=== PATIENT | male | born 1945 | race Caucasian/White ===

== ENCOUNTER 2016-11-22 13:49 | Inpatient (IN) ==
[2016-11-22] MEDS ORDERED: 0.9 % Sodium Chloride 1,000 ML IVC ONE (13:56)
[2016-11-22] MEDS ORDERED: Norepinephrine 4 MG in D5% in Water 250 ML IV SCH ×2 (14:00→15:17)
[2016-11-22 14:02] LABS: Nucleated Red Blood Cells 0.3 /100 WBC (0); Segmented Neutrophils % 54.9 %
[2016-11-22 14:04] LABS: Basophils # 0.1 K/mcL (0.0-0.2); Basophils % 0.8 %; Eosinophils # 0.1 K/mcL (0.0-0.6); Eosinophils % 0.5 %; Hematocrit 54.5 % (37.5-50.1); Hemoglobin 14.6 g/dL (12.9-16.9); Immature Granulocytes % 4.3 % (0-4); Lymphocytes % 23.4 %; Mean Corpuscular HGB Conc 26.8 g/dL (31.6-35.5); Mean Corpuscular Hemoglobin 26.1 pg (28.0-33.3); Mean Corpuscular Volume 97.5 fL (83.0-100.0); Mean Platelet Volume 10.5 fL (9.4-12.4); Monocytes # 2.3 K/mcL (0.0-1.3); Monocytes % 16.1 %; Platelet Count 225 K/mcL (140-400); Red Blood Count 5.59 M/mcL (4.19-5.50); Red Cell Distribution Width 15.1 % (11.5-14.5)
[2016-11-22 14:05] LABS: Lymphocytes # 3.4 K/mcL (0.6-4.6); Neutrophils # 7.9 K/mcL (1.6-8.9)
[2016-11-22 14:11] LABS: INR 1.2; Prothrombin Time 12.7 Seconds (9.4-12.1)
[2016-11-22 14:13] LABS: Activated Partial Thrombo Time 28.2 Seconds (26.0-36.0)
[2016-11-22 14:18] LABS: BUN/Creatinine Ratio 25 (6-26); Blood Urea Nitrogen 25 mg/dL (8-26); Calcium 9.7 mg/dL (8.6-10.8); Carbon Dioxide 36 mEq/L (19-29); Chloride 101 mEq/L (98-109); Glucose 155 mg/dL (70-99); Magnesium 1.9 mg/dL (1.6-2.6); Osmolality,Calculated 318 (280-300); Sodium 150 mEq/L (136-145); eGFR For African Americans > 60 (> 60); eGFR For Non-African Americans > 60 (> 60)
[2016-11-22 14:28] LABS: Blood Gas FiO2 100 %
[2016-11-22 14:29] LABS: ABG Base Excess 6.4 mEq/L (-2.0 to 3.0); ABG HCO3 30 mEQ/L (21-27); ABG Oxygen Saturation 100 % (95-98); ABG PH 7.23 pH Units (7.32-7.45); ABG PO2 372 mmHg (85-104); ABG TCO2 40.9 mEq/L (20-26)
[2016-11-22 14:31] LABS: ABG PCO2 91 mmHg (35-45)
[2016-11-22 14:36] LABS: Platelet Estimate Normal (Normal)
[2016-11-22 14:37] LABS: Hypochromasia Present (Not Present); Large Platelets Present (Not Present); Polychromasia 1+ (Not Present)
[2016-11-22] MEDS ORDERED: 0.9 % Sodium Chloride 1,000 ML IV ONE (14:48)
[2016-11-22] MEDS ORDERED: *HR* Amiodarone Premix 150 MG/100 ML BAG IVPB ONE (14:48)
[2016-11-22] MEDS ORDERED: *HR* EPINEPHrine 1 MG/10 ML SYRINGE IVP ONE (14:48)
--- NOTE | 2016-11-22 14:49 | Pulmonology History & Physical ---
Date of Encounter: 11/22/16 Time of Encounter: 14:47 Assessment and Plan (1) Cardiac arrest Current visit: Yes Status: Acute Unclear etiology. Given chief complaint of chest pain prior to the decompensation there is concern for cardiac etiology. We will check an echocardiogram and trend his cardiac enzymes. He is certainly also a risk for a pulmonary cause of cardiac arrest with his underlying COPD and obesity hypoventilation syndrome coupled with the use of respiratory depressants ( opioids). Lactate is pending, but there is no anion gap on the blood chemistry. He currently has a stable blood pressure off vasopressors, however we will place a central line have norepinephrine available if needed. (2) Acute on chronic respiratory failure with hypoxia and hypercapnia Current visit: No Status: Acute Continue full vent support in the setting of cardiac arrest and initiation of hypothermia protocol. He is certainly at significant risk for requiring a tracheostomy tube depending on clinical course and goals of care discussion with family. (3) Encephalopathy Current visit: Yes Status: Acute Concern for anoxic brain injury in light of his prolonged CPR and clinical exam (myoclonic jerking). He will need head imaging when stable. We have initiated hypothermia protocol. I will check an neuron-specific enolase. (4) Obesity hypoventilation syndrome Current visit: Yes Status: Acute His BMI is 40, and his baseline PaCO2 is calculated at 62 mmHg. Currently treated with endotracheal tube and mechanical ventilator. (5) COPD (chronic obstructive pulmonary disease) Current visit: No Status: Acute Emphysematous changes noted on previous chest imaging. He also has a large bulla on the left. We will continue scheduled bronchodilators. Qualifiers: COPD type: emphysema Emphysema type: unspecified Qualified Code(s): J43.9 - Emphysema, unspecified (6) Abnormal chest x-ray Current visit: Yes Status: Acute I reviewed the chest x-ray performed today, which revealed findings concerning for a right lower lobe lung mass. Review of previous imaging revealed a right lower lobe nodule. We will need to defer any further workup such as CT scan of the chest until we know the status of his neurologic recovery. History of Present Illness Chief complaint: Cardiac arrest HPI: Mr. Licona is a 71 year old male with a medical history significant for COPD, obesity hypoventilation syndrome, and CLL who presents from home with cardiac arrest. Of note, the patient is currently intubated and encephalopathic. Therefore he is unable to provide history or review of systems. Information was obtained from the medical record and discussion with family and hospital staff. Reportedly, the patient had not been feeling well as of late. Per his sister, he had been essentially dependent on his home CPAP machine [id number]. Patient developed acute chest pain and was evaluated by EMS. In route to the emergency department he had a cardiac arrest. Reportedly, he underwent approximately 24 minutes of CPR before return of spontaneous circulation. It was a PEA arrest. He was intubated in the emergency department. He has been unresponsive since return of circulation with plans for initiating hypothermia protocol. Past Med Surg Social Fam HX - Past Medical History Medical history: arthritis, COPD, coronary artery disease, diabetes, hyperlipidemia, hypertension, other Psychiatric history: no psych history - Past Surgical History Surgical History: cataract - Social History Smoking Status: Former smoker Smokeless Tobacco Status: No Alcohol use: none Drug use: none - Family History Father Living Status: Hx Family Respiratory Disorders: Yes (COPD) Mother Living Status: Hx Family Cardiac Disorders: Yes Medications and Allergies Albuterol Neb [Proventil Neb] 2.5 mg IH Q4HR 02/18/16 [History] Albuterol Sulfate [Ventolin Hfa] 2 puff IH QID 02/18/16 [History] Alprazolam [Xanax 0.5 MG Tablet] 0.5 mg PO BID 02/18/16 [History] Aspirin [Adult Low Dose Aspirin EC] 81 mg PO DAILY 02/18/16 [History] Atorvastatin [Lipitor] 40 mg PO DAILY 02/18/16 [History] Cetirizine HCl [Zyrtec] 10 mg PO DAILY 02/18/16 [History] Enalapril Maleate [Vasotec] 10 mg PO DAILY 02/18/16 [History] Ergocalciferol (VITAMIN D2) [Vitamin D2 (50,000 UNIT)] 50,000 unit PO QWEEK [History] Metformin HCl [Glumetza] 500 mg PO DAILY 02/18/16 [History] Montelukast [Singulair] 10 mg PO DAILY 02/18/16 [History] Omeprazole [PriLOSEC] 20 mg PO DAILY 02/18/16 [History] Theophylline Anhydrous [Arash-24] 400 mg PO DAILY 02/18/16 [History] Tizanidine HCl [Zanaflex] 4 mg PO TID 02/18/16 [History] PredniSONE 40 mg PO DAILY #22 tablet 02/27/16 [Rx] Allopurinol [Zyloprim 300 MG] 300 mg PO DAILY #14 tablet 02/29/16 [Rx] Ondansetron HCl [Zofran] 4 mg PO Q6HR PRN #10 tablet 03/03/16 [Rx] Fluticasone/Salmeterol [Advair 500-50 Diskus] 1 each IH Q12H 05/04/16 [History] Umeclidinium Rock [Incruse Ellipta] 62.5 mcg IH DAILY 05/04/16 [History] Ibrutinib [Imbruvica] 420 mg PO DAILY #90 capsule 08/30/16 [Rx] OxyCODONE/APAP 5/325 [Percocet 5/325 MG] 1 each PO Q6HR PRN #120 tablet [Rx] Allergies nicotine Allergy (Verified 08/30/16 13:52) Blister nitroglycerin Allergy (Verified 08/30/16 13:52) Blister ROS unobtainable: due to endotracheal tube, due to mental status Physical Examination Vital Signs: Vital Signs, Last 4 Hours Temp Pulse Pulse Resp BP Pulse Ox 11/22/16 14:34 64 16 124/76 98 11/22/16 14:30 16 120/77 99 11/22/16 14:29 71 16 120/93 99 11/22/16 14:16 70 16 120/77 100 11/22/16 13:52 0 11/22/16 13:50 0 F L 0 0 0/0 0 L General: Intubated, critically ill-appearing morbidly obese white male, myoclonic jerking noted Eyes: nonicteric ENT: Endotracheal tube in place Neck: supple, no lymphadenopathy Lungs: Coarse bilateral breath sounds Cardiovascular: regular rate and rhythm Gastrointestinal: Soft obese abdomen with large pannus Integumentary: normal Extremities: no cyanosis, LE edema noted Musculoskeletal: no deformities Neuro: Unresponsive, myoclonic jerking noted diffusely in face and extremities Psych: Unable to perform exam Results - Laboratory Findings CBC and BMP: 11/22/16 13:50 11/22/16 13:50 ABG ABG pH 7.23 pH Units (7.32-7.45) L 11/22/16 14:26 ABG pCO2 91 mmHg (35-45) H* 11/22/16 14:26 ABG pO2 372 mmHg (85-104) H 11/22/16 14:26 ABG O2 Saturation 100 % (95-98) H 11/22/16 14:26 PT/INR, D-dimer PT 12.7 Seconds (9.4-12.1) H 11/22/16 13:50 Abnormal lab findings: Abnormal lab results WBC 14.3 K/mcL (4.3-11.1) H 11/22/16 13:50 RBC 5.59 M/mcL (4.19-5.50) H 11/22/16 13:50 Hct 54.5 % (37.5-50.1) H 11/22/16 13:50 MCH 26.1 pg (28.0-33.3) L 11/22/16 13:50 MCHC 26.8 g/dL (31.6-35.5) L 11/22/16 13:50 RDW 15.1 % (11.5-14.5) H 11/22/16 13:50 Immature Gran % 4.3 % (0-4) H 11/22/16 13:50 Monocytes # 2.3 K/mcL (0.0-1.3) H 11/22/16 13:50 Nucleated RBCs/100 WBC 0.3 /100 WBC (0) H 11/22/16 13:50 Large Platelets Present (Not Present) A 11/22/16 13:50 Polychromasia 1+ (Not Present) A 11/22/16 13:50 Hypochromasia Present (Not Present) A 11/22/16 13:50 PT 12.7 Seconds (9.4-12.1) H 11/22/16 13:50 ABG pH 7.23 pH Units (7.32-7.45) L 11/22/16 14:26 ABG pCO2 91 mmHg (35-45) H* 11/22/16 14:26 ABG pO2 372 mmHg (85-104) H 11/22/16 14:26 ABG HCO3 30 mEQ/L (21-27) H 11/22/16 14:26 ABG Total CO2 40.9 mEq/L (20-26) H 11/22/16 14:26 ABG O2 Saturation 100 % (95-98) H 11/22/16 14:26 ABG Base Excess 6.4 mEq/L (-2.0 to 3.0) H 11/22/16 14:26 Sodium 150 mEq/L (136-145) H 11/22/16 13:50 Potassium 5.0 mEq/L (3.5-4.5) H 11/22/16 13:50 Carbon Dioxide 36 mEq/L (19-29) H 11/22/16 13:50 Glucose 155 mg/dL (70-99) H 11/22/16 13:50 POC Glucose 145 (58-89) H 11/22/16 14:02 Calculated Osmolality 318 (280-300) H 11/22/16 13:50 Lactic Acid 3.7 mmol/L (0.5-2.2) H 11/22/16 13:50
[2016-11-22] MEDS ORDERED: Naloxone 0.4 MG/ML INJ IVP PRN (15:02)
[2016-11-22] MEDS ORDERED: Acetaminophen 325 MG TABLET PO PRN (15:05)
[2016-11-22] MEDS ORDERED: Ondansetron 4 MG/2 ML VIAL IVP PRN (15:05)
--- NOTE | 2016-11-22 15:09 | Emergency Department Note ---
Disposition Clinical Impression: Cardiac arrest Disposition: Admitted As Inpatient Condition: Serious Time of Disposition: 14:38 CPR HPI - General Chief Complaint: ED Cardiac Arrest/CPR Stated Complaint: Cardiac Arrest Time Seen by Provider: 11/22/16 13:56 Source: EMS Mode of arrival: EMS Limitations: other Nursing Notes Reviewed: Yes Vital Signs Reviewed: Yes - History of Present Illness HPI Narrative: 71-year-old male presents to the emergency department in cardiac arrest. EMS reports the patient called for chest pain and on arrival to the patient's home he was awake and alert. His initial rhythm strip showed normal sinus rhythm. EMS states that the patient shortly thereafter went unresponsive and progressed into asystole. They continue with CPR on the way to the hospital. On arrival the patient was in asystole. He was intubated without complication. He received 2 rounds of ACLS including 2 rounds of epinephrine. He received 1 amp of bicarbonate and 1 amp of calcium gluconate. Shortly thereafter the patient's rhythm changed and on pulse check a palpable pulse could be felt. Bedside echo confirmed cardiac activity. Postarrest EKG showed atrial fibrillation with rate of 159 bpm. Shortly thereafter the patient spontaneously converted to sinus rhythm and a repeat EKG showed a normal sinus rhythm with a indeterminate conduction delay. There was no signs of ST elevation. We then discussed the case with the budget accountant who accepted the patient for further evaluation. The patient's family was updated on his critical condition and we are awaiting their arrival to the emergency department. Witnessed Arrest: Yes Pt Complaint: collapsed during rest Onset (ago): Just E COMMERCE PROJECT MANAGER Timing confirmed by: other (EMS) Place: home Bystander CPR Performed: Yes AED Applied by Bystander/Cold Water Machine Operator: Yes Shock Advised: No Downtime Before ACLS Arrival (mins): 0 Initial Findings in the Field: unresponsive, no pulse, other rhythm (Asystole) ROSC in the Field: No Associated Injuries: No Associated symptoms: Reports: chest pain Known history of: CAD - Related Data Home Medications Medication Instructions Recorded Confirmed Albuterol Neb [Proventil Neb] 2.5 mg IH Q6H PRN 02/18/16 11/22/16 Albuterol Sulfate [Ventolin Hfa] 2 puff IH Q4-6H PRN 02/18/16 11/22/16 Alprazolam [Xanax 0.5 MG Tablet] 0.5 mg PO BID 02/18/16 11/22/16 Aspirin [Adult Low Dose Aspirin EC] 81 mg PO DAILY 02/18/16 11/22/16 Atorvastatin [Lipitor] 40 mg PO DAILY 02/18/16 11/22/16 Cetirizine HCl [Zyrtec] 10 mg PO DAILY 02/18/16 11/22/16 Enalapril Maleate [Vasotec] 10 mg PO DAILY 02/18/16 11/22/16 Ergocalciferol (VITAMIN D2) 50,000 unit PO QWEEK 02/18/16 11/22/16 [Vitamin D2 (50,000 UNIT)] Metformin HCl [Glumetza] 500 mg PO QPM 02/18/16 11/22/16 Montelukast [Singulair] 10 mg PO DAILY 02/18/16 11/22/16 Omeprazole [PriLOSEC] 20 mg PO DAILY 02/18/16 11/22/16 Theophylline Anhydrous [Arash-24] 400 mg PO DAILY 02/18/16 11/22/16 Tizanidine HCl [Zanaflex] 4 mg PO BID 02/18/16 11/22/16 Fluticasone/Salmeterol [Advair 1 each IH Q12H 05/04/16 11/22/16 500-50 Diskus] Umeclidinium Mustang [Incruse 62.5 mcg IH DAILY 05/04/16 11/22/16 Ellipta] PredniSONE 10 mg PO DAILY 11/22/16 11/22/16 Previous Rx's Medication Instructions Recorded Allopurinol [Zyloprim 300 MG] 300 mg PO DAILY #14 tablet 02/29/16 Ondansetron HCl [Zofran] 4 mg PO Q6HR PRN #10 tablet 03/03/16 Ibrutinib [Imbruvica] 420 mg PO DAILY #90 capsule 08/30/16 OxyCODONE/APAP 5/325 [Percocet 1 each PO Q6HR PRN #120 tablet 10/18/16 5/325 MG] Allergies Allergy/AdvReac Type Severity Reaction Status Date / Time nicotine Allergy Blister Verified 08/30/16 13:52 nitroglycerin Allergy Blister Verified 08/30/16 13:52 Limitations: ROS unobtainable due to patients medical condition CPR PMH - Past Medical History Medical history: Reports: arthritis, COPD, coronary artery disease, diabetes, hyperlipidemia, hypertension, other Male Surgical history: Reports: cataract Psychiatric history: Reports: no psych history - Social History Smoking Status: Former smoker Alcohol use: Reports: none Drug use: Reports: none Physical Exam - General Limitations: other (Altered mentation, cardiac arrest) General appearance: other (Unresponsive, in extremities) - Head Head exam: atraumatic, normocephalic - Cardiovascular Cardiovascular exam: Present: other (No polyps) - Abdominal Exam Abdominal exam: Present: soft, distention - Neurological Exam Neurological exam: Present: other (Unresponsive) - Skin Skin exam: Present: cyanosis, mottled Course - Reevaluation(s) Reevaluation #1: Case was discussed with Dr. Adames of ICU who accepted the patient. We also discussed the case with Dr. Chou of interventional cardiology. They do recommend therapeutic hypothermia. Central venous access will be obtained and the patient will be cooled to 33C. Time: 14:39 Vital Signs Temperature 0 F L 11/22/16 13:50 Pulse Rate 0 11/22/16 13:50 Respiratory Rate 0 11/22/16 13:50 Blood Pressure 0/0 11/22/16 13:50 O2 Sat by Pulse Oximetry 0 L 11/22/16 13:50 Temperature 93.0 F L 11/23/16 06:30 Pulse Rate 43 11/23/16 06:30 Respiratory Rate 16 11/23/16 06:30 Blood Pressure 112/74 11/23/16 06:30 O2 Sat by Pulse Oximetry 100 11/23/16 06:30 Oxygen Delivery Oxygen Delivery Ambu Bag Procedures - Central Line Placement Left IJ Central Line Inserted*: Yes Central Line Catheter Replacement*: No Central Line Insertion: emergent Procedural Pause: timeout performed per policy Patient Placed on Monitor/Pulse Ox: Yes During the Procedure: clinician is wearing sterile gloves, cap, mask,& gown during insertion, sterile field and sterile technique are maintained, patient's face is covered with drape or mask and wearing a cap, everyone in room is wearing a mask Central Line Prep: Chlorhexidine scrub Prep the Procedure Site: apply chloraprep to the skin using a back and forth scrubbing motion Ultrasound Used for Placement: Yes Central Line Lumen Inserted: triple Post Procedure: sutured in place, good blood return, all ports aspirated, flushed, capped, sterile dressing applied, guide wire removed and visualized Patient Tolerated Procedure: well Complications: none Name of Clinician Inserting Central Line: Sayra Clinician Assisting/Completing Checklist: Braulio Date: 11/22/16 Time: 15:33 - Intubation Time out performed: No sedative: none Laryngoscope: Salvador ET Tube Size: Oral ET Tube Uncuffed: Yes Tube Secured Depth (cm): 22 Tube Secured Location: lips Tube Placement Confirmation: visualized tube passing through cords, equal breath sounds bilaterally, no breath sounds over epigastrium Patient Tolerated Procedure: well Intubation Complications: none Cardiac Arrest/CPR - Medical Records Medical records reviewed: Yes I reviewed the patient's medical records. - Lab Data Lab results reviewed: Yes I reviewed the patient's lab results. Result diagrams: 11/23/16 03:56 11/23/16 03:56 Lab Results 11/22/16 11/22/16 11/22/16 Range/Units 13:50 13:50 13:50 WBC 14.3 H (4.3-11.1) K/mcL RBC 5.59 H (4.19-5.50) M/mcL Hgb 14.6 (12.9-16.9) g/dL Hct 54.5 H (37.5-50.1) % MCV 97.5 (83.0-100.0) fL MCH 26.1 L (28.0-33.3) pg MCHC 26.8 L (31.6-35.5) g/dL RDW 15.1 H (11.5-14.5) % Plt Count 225 (140-400) K/mcL MPV 10.5 (9.4-12.4) fL Immature Gran % 4.3 H (0-4) % Seg Neutrophils % 54.9 % Lymphocytes % 23.4 % Monocytes % 16.1 % Eosinophils % 0.5 % Basophils % 0.8 % Neutrophils # 7.9 (1.6-8.9) K/mcL Lymphocytes # 3.4 (0.6-4.6) K/mcL Monocytes # 2.3 H (0.0-1.3) K/mcL Eosinophils # 0.1 (0.0-0.6) K/mcL Basophils # 0.1 (0.0-0.2) K/mcL Nucleated RBCs/100 WBC 0.3 H (0) /100 WBC Platelet Estimate Normal (Normal) Large Platelets Present A (Not Present) Polychromasia 1+ A (Not Present) Hypochromasia Present A (Not Present) PT 12.7 H (9.4-12.1) Seconds INR 1.2 APTT 28.2 (26.0-36.0) Seconds ABG pH (7.32-7.45) pH Units ABG pCO2 (35-45) mmHg ABG pO2 (85-104) mmHg ABG HCO3 (21-27) mEQ/L ABG Total CO2 (20-26) mEq/L ABG O2 Saturation (95-98) % ABG Base Excess (-2.0 to 3.0) mEq/L Blood Gas Modality Inspired O2 % Sodium 150 H (136-145) mEq/L Potassium 5.0 H (3.5-4.5) mEq/L Chloride 101 (98-109) mEq/L Carbon Dioxide 36 H (19-29) mEq/L BUN 25 (8-26) mg/dL Creatinine 0.99 (0.72-1.25) mg/dL Est GFR ( Amer) > 60 (> 60) Est GFR (Non-Af Amer) > 60 (> 60) BUN/Creatinine Ratio 25 (6-26) Glucose 155 H (70-99) mg/dL POC Glucose (58-89) Calculated Osmolality 318 H (280-300) Lactic Acid (0.5-2.2) mmol/L Calcium 9.7 (8.6-10.8) mg/dL Magnesium 1.9 (1.6-2.6) mg/dL Troponin I (0-0.03) ng/mL 11/22/16 11/22/16 11/22/16 Range/Units 13:50 13:50 14:02 WBC (4.3-11.1) K/mcL RBC (4.19-5.50) M/mcL Hgb (12.9-16.9) g/dL Hct (37.5-50.1) % MCV (83.0-100.0) fL MCH (28.0-33.3) pg MCHC (31.6-35.5) g/dL RDW (11.5-14.5) % Plt Count (140-400) K/mcL MPV (9.4-12.4) fL Immature Gran % (0-4) % Seg Neutrophils % % Lymphocytes % % Monocytes % % Eosinophils % % Basophils % % Neutrophils # (1.6-8.9) K/mcL Lymphocytes # (0.6-4.6) K/mcL Monocytes # (0.0-1.3) K/mcL Eosinophils # (0.0-0.6) K/mcL Basophils # (0.0-0.2) K/mcL Nucleated RBCs/100 WBC (0) /100 WBC Platelet Estimate (Normal) Large Platelets (Not Present) Polychromasia (Not Present) Hypochromasia (Not Present) PT (9.4-12.1) Seconds INR APTT (26.0-36.0) Seconds ABG pH (7.32-7.45) pH Units ABG pCO2 (35-45) mmHg ABG pO2 (85-104) mmHg ABG HCO3 (21-27) mEQ/L ABG Total CO2 (20-26) mEq/L ABG O2 Saturation (95-98) % ABG Base Excess (-2.0 to 3.0) mEq/L Blood Gas Modality Inspired O2 % Sodium (136-145) mEq/L Potassium (3.5-4.5) mEq/L Chloride (98-109) mEq/L Carbon Dioxide (19-29) mEq/L BUN (8-26) mg/dL Creatinine (0.72-1.25) mg/dL Est GFR ( Amer) (> 60) Est GFR (Non-Af Amer) (> 60) BUN/Creatinine Ratio (6-26) Glucose (70-99) mg/dL POC Glucose 145 H (58-89) Calculated Osmolality (280-300) Lactic Acid 3.7 H (0.5-2.2) mmol/L Calcium (8.6-10.8) mg/dL Magnesium (1.6-2.6) mg/dL Troponin I 0.03 (0-0.03) ng/mL 11/22/16 Range/Units 14:26 WBC (4.3-11.1) K/mcL RBC (4.19-5.50) M/mcL Hgb (12.9-16.9) g/dL Hct (37.5-50.1) % MCV (83.0-100.0) fL MCH (28.0-33.3) pg MCHC (31.6-35.5) g/dL RDW (11.5-14.5) % Plt Count (140-400) K/mcL MPV (9.4-12.4) fL Immature Gran % (0-4) % Seg Neutrophils % % Lymphocytes % % Monocytes % % Eosinophils % % Basophils % % Neutrophils # (1.6-8.9) K/mcL Lymphocytes # (0.6-4.6) K/mcL Monocytes # (0.0-1.3) K/mcL Eosinophils # (0.0-0.6) K/mcL Basophils # (0.0-0.2) K/mcL Nucleated RBCs/100 WBC (0) /100 WBC Platelet Estimate (Normal) Large Platelets (Not Present) Polychromasia (Not Present) Hypochromasia (Not Present) PT (9.4-12.1) Seconds INR APTT (26.0-36.0) Seconds ABG pH 7.23 L (7.32-7.45) pH Units ABG pCO2 91 H* (35-45) mmHg ABG pO2 372 H (85-104) mmHg ABG HCO3 30 H (21-27) mEQ/L ABG Total CO2 40.9 H (20-26) mEq/L ABG O2 Saturation 100 H (95-98) % ABG Base Excess 6.4 H (-2.0 to 3.0) mEq/L Blood Gas Modality ASSIST CONTROL Inspired O2 100 % Sodium (136-145) mEq/L Potassium (3.5-4.5) mEq/L Chloride (98-109) mEq/L Carbon Dioxide (19-29) mEq/L BUN (8-26) mg/dL Creatinine (0.72-1.25) mg/dL Est GFR ( Amer) (> 60) Est GFR (Non-Af Amer) (> 60) BUN/Creatinine Ratio (6-26) Glucose (70-99) mg/dL POC Glucose (58-89) Calculated Osmolality (280-300) Lactic Acid (0.5-2.2) mmol/L Calcium (8.6-10.8) mg/dL Magnesium (1.6-2.6) mg/dL Troponin I (0-0.03) ng/mL - Radiology Data Radiology results reviewed: Yes I reviewed the patient's radiology results. - EKG Data EKG attestation: Yes I reviewed and interpreted this EKG. Rate: tachycardia Rhythm: A.Fib When compared to previous EKG there are: changes noted Critical Care Time Critical Care Time: Yes Total Critical Care Time: 60 Attestation: Critical care performed: Time is exclusive of separately billable procedures. Time includes: direct patient care, patient reassessment, coordination of patient care, interpretation of data (laboratory data, radiology data, and respiratory data), review of patient's medical records, medical consultation and documentation of patient care. Procedures included in critical care time: Procedures excluded from critical care time: . Attestation Statement - Attestation Attestation: I examined this patient and my medical decision-making was reviewed with the VIDEOGAME DESIGNER/PA/Advanced Practice Nurse/Resident Physician. I agree with the documented findings, disposition and treatment plan as described except to the extent set forth below. Patient presents to the emergency department in full arrest. Paramedics were called for chest pain. He was awake and alert when they got there and they lost his pulse and round. They state he went into a bradycardic arrest. Patient arrived with CPR in progress. Respirations by bag valve mask. Patient was intubated by us. ACLS protocol was followed. The patient received 2 rounds of epinephrine and bicarbonate and had return of spontaneous circulation. The patient had a central line placed. Culture sent. Admitted to ICU. Cardiology consult. The patient then had a V. fib arrest. 2 rounds of ACLS before ROSC. Patient notes is required no sedation at this time. Hypothermia protocol has been started. Amiodarone drip has been started. Patient has not responsive pupils. Family aware. Family discussing CODE STATUS at this time.
[2016-11-22] MEDS ORDERED: FentaNYL (PF) 1,000 MCG in 0.9 % Sodium Chloride 80 ML IVC SCH (15:15)
[2016-11-22] MEDS ORDERED: Amiodarone Premix 150 MG/100 ML BAG IVPB ONE (15:27)
[2016-11-22] MEDS ORDERED: Amiodarone Premix 360 MG/200 ML BAG IVC ONE ×2 (15:29→22:01)
[2016-11-22] MEDS: Ipratropium/Albuterol Neb 3 ML IH SCH ×2 (15:39→19:45)
--- NOTE | 2016-11-22 15:44 | Cardiology Consult Note ---
Date of Encounter: 11/22/16 Time of Encounter: 15:39 Assessment and Plan (1) Cardiac arrest Current Visit: Yes Status: Acute Out of hospital cardiac arrest. According to reports, worsening respiratory failure in the weeks and months leading up to today. 24 minutes CPR. Brief episode of VF in ER - now on amiodarone. Unknown neurological function at this time - cooling protocol to be initiated. Overall, prognosis appears very poor. Initial troponin negative. Given unknown neurological function and very poor condition, I would not recommend an immediate cardiac catheterization. Okay to start heparin drip for possible AF, possible PE/ACS. Continue aspirin. Pressors on stand-by; hold BB at this time. I had a very lengthy discussion with multiple family members. I explained that his current condition is critical and that his prognosis is grave. They are reconsidering his CODE status. Discussion w patient/family: The assessment and plan as outlined above was discussed with the patient and/or family members who expressed understanding and agreement. All questions were answered. Thank you for involving us in the care of your patient. Please call with any questions. History of Present Illness Consult date: 11/22/16 Requesting physician: Trish Guerrero See Consult reason: CPA Chief complaint: CPA History of present illness: Mr. Licona is a 71 year old morbidly obese male. History of COPD, LAURA, CAD, prior PCI, prior pneumothorax, and CLL. Per reports, patient lives with respiratory insufficiency. Per family, spends much his days on BIPAP. Recently, family reports chest congestion. EMS called last week - but were not able to get patient out of house due to his size. Today, EMS again contacted. He was brought to hospital. Per reports, asystole in route. 24 minutes of CPR. Then, atrial fibrillation in ER. In ER, intubated and central line placed. Possible mass on CXR. Patient reportedly had VF arrest - brief CPR requiring defibrillation. Return to atrial fibrillation. Past Med Surg Social Fam HX - Past Medical History Medical history: arthritis, COPD, coronary artery disease, diabetes, hyperlipidemia, hypertension, other Psychiatric history: no psych history - Past Surgical History Surgical History: cataract - Social History Smoking Status: Former smoker Smokeless Tobacco Status: No Alcohol use: none Drug use: none - Family History Father Living Status: Hx Family Respiratory Disorders: Yes (COPD) Mother Living Status: Hx Family Cardiac Disorders: Yes Medications and Allergies Albuterol Neb [Proventil Neb] 2.5 mg IH Q4HR 02/18/16 [History] Albuterol Sulfate [Ventolin Hfa] 2 puff IH QID 02/18/16 [History] Alprazolam [Xanax 0.5 MG Tablet] 0.5 mg PO BID 02/18/16 [History] Aspirin [Adult Low Dose Aspirin EC] 81 mg PO DAILY 02/18/16 [History] Atorvastatin [Lipitor] 40 mg PO DAILY 02/18/16 [History] Cetirizine HCl [Zyrtec] 10 mg PO DAILY 02/18/16 [History] Enalapril Maleate [Vasotec] 10 mg PO DAILY 02/18/16 [History] Ergocalciferol (VITAMIN D2) [Vitamin D2 (50,000 UNIT)] 50,000 unit PO QWEEK [History] Metformin HCl [Glumetza] 500 mg PO DAILY 02/18/16 [History] Montelukast [Singulair] 10 mg PO DAILY 02/18/16 [History] Omeprazole [PriLOSEC] 20 mg PO DAILY 02/18/16 [History] Theophylline Anhydrous [Arash-24] 400 mg PO DAILY 02/18/16 [History] Tizanidine HCl [Zanaflex] 4 mg PO TID 02/18/16 [History] Allopurinol [Zyloprim 300 MG] 300 mg PO DAILY #14 tablet 02/29/16 [Rx] Ondansetron HCl [Zofran] 4 mg PO Q6HR PRN #10 tablet 03/03/16 [Rx] Fluticasone/Salmeterol [Advair 500-50 Diskus] 1 each IH Q12H 05/04/16 [History] Umeclidinium [place] [Incruse Ellipta] 62.5 mcg IH DAILY 05/04/16 [History] Ibrutinib [Imbruvica] 420 mg PO DAILY #90 capsule 08/30/16 [Rx] OxyCODONE/APAP 5/325 [Percocet 5/325 MG] 1 each PO Q6HR PRN #120 tablet [Rx] PredniSONE 10 mg PO DAILY 11/22/16 [History] Allergies nicotine Allergy (Verified 08/30/16 13:52) Blister nitroglycerin Allergy (Verified 08/30/16 13:52) Blister ROS unobtainable: due to endotracheal tube, due to mental status All Systems Review: A 10-system review of systems was performed and is negative for pertinent findings except as documented above in the HPI. Physical Examination Vital Signs, Last 4 Hours Temp Pulse Pulse Resp BP Pulse Ox 11/22/16 15:35 78 16 165/118 98 11/22/16 15:15 140 101/80 100 11/22/16 14:34 64 16 124/76 98 11/22/16 14:30 16 120/77 99 11/22/16 14:29 71 16 120/93 99 11/22/16 14:16 70 16 120/77 100 11/22/16 13:52 0 11/22/16 13:50 0 F L 0 0 0/0 0 L General: Other (Very ill) HEENT: Atraumatic, Normocephaly Neck: Other (Large neck, difficult to assess for JVD) Cardiac: Other (Very distant, irregular noted. Unable to appreciate murmurs) Lungs: Other (Ventilator, scattered rhonchi) Abdomen: Other (Morbidly obese) Skin: No rashes noted on visualized skin Musculoskeletal: No Chest Wall Tenderness Extremities: No Clubbing, No Cyanosis, Other (Edema) Results 11/22/16 13:50 11/22/16 13:50 Lab Results 11/22/16 11/22/16 11/22/16 13:50 13:50 13:50 WBC 14.3 H Hgb 14.6 Hct 54.5 H Plt Count 225 INR 1.2 APTT 28.2 Sodium 150 H Potassium 5.0 H Chloride 101 Carbon Dioxide 36 H BUN 25 Creatinine 0.99 Glucose 155 H Calcium 9.7 Magnesium 1.9 Troponin I 11/22/16 13:50 WBC Hgb Hct Plt Count INR APTT Sodium Potassium Chloride Carbon Dioxide BUN Creatinine Glucose Calcium Magnesium Troponin I 0.03 - Imaging and Cardiology Chest Xray: report reviewed - EKG Interpretation EKG results cardiology: personally reviewed (AF, inferior ST depressions, IVCD.) Consult Discharge Plan - Plan Referrals: NO,PCP [Primary Care Provider] -
--- NOTE | 2016-11-22 15:53 | Emergency Department Note ---
Disposition Clinical Impression: Cardiac arrest Disposition: Admitted As Inpatient Condition: Serious Time of Disposition: 15:29 CPR HPI - General Chief Complaint: ED Cardiac Arrest/CPR Stated Complaint: Cardiac Arrest Time Seen by Provider: 11/22/16 13:56 Source: EMS Mode of arrival: EMS Limitations: other (Altered mentation, cardiac arrest) Nursing Notes Reviewed: Yes Vital Signs Reviewed: Yes - History of Present Illness Pt Complaint: collapsed during rest Place: home Bystander CPR Performed: Yes AED Applied by Bystander/Gold Tooler: Yes Shock Advised: No Initial Findings in the Field: unresponsive, no pulse, other rhythm (Asystole) ROSC in the Field: No Associated Injuries: No Associated symptoms: Reports: chest pain - Related Data Home Medications Medication Instructions Recorded Confirmed Albuterol Neb [Proventil Neb] 2.5 mg IH Q6H PRN 02/18/16 11/22/16 Albuterol Sulfate [Ventolin Hfa] 2 puff IH Q4-6H PRN 02/18/16 11/22/16 Alprazolam [Xanax 0.5 MG Tablet] 0.5 mg PO BID 02/18/16 11/22/16 Aspirin [Adult Low Dose Aspirin EC] 81 mg PO DAILY 02/18/16 11/22/16 Atorvastatin [Lipitor] 40 mg PO DAILY 02/18/16 11/22/16 Cetirizine HCl [Zyrtec] 10 mg PO DAILY 02/18/16 11/22/16 Enalapril Maleate [Vasotec] 10 mg PO DAILY 02/18/16 11/22/16 Ergocalciferol (VITAMIN D2) 50,000 unit PO QWEEK 02/18/16 11/22/16 [Vitamin D2 (50,000 UNIT)] Metformin HCl [Glumetza] 500 mg PO QPM 02/18/16 11/22/16 Montelukast [Singulair] 10 mg PO DAILY 02/18/16 11/22/16 Omeprazole [PriLOSEC] 20 mg PO DAILY 02/18/16 11/22/16 Theophylline Anhydrous [Arash-24] 400 mg PO DAILY 02/18/16 11/22/16 Tizanidine HCl [Zanaflex] 4 mg PO BID 02/18/16 11/22/16 Fluticasone/Salmeterol [Advair 1 each IH Q12H 05/04/16 11/22/16 500-50 Diskus] Umeclidinium [place] [Incruse 62.5 mcg IH DAILY 05/04/16 11/22/16 Ellipta] PredniSONE 10 mg PO DAILY 11/22/16 11/22/16 Previous Rx's Medication Instructions Recorded Allopurinol [Zyloprim 300 MG] 300 mg PO DAILY #14 tablet 02/29/16 Ondansetron HCl [Zofran] 4 mg PO Q6HR PRN #10 tablet 03/03/16 Ibrutinib [Imbruvica] 420 mg PO DAILY #90 capsule 08/30/16 OxyCODONE/APAP 5/325 [Percocet 1 each PO Q6HR PRN #120 tablet 10/18/16 5/325 MG] Allergies Allergy/AdvReac Type Severity Reaction Status Date / Time nicotine Allergy Blister Verified 08/30/16 13:52 nitroglycerin Allergy Blister Verified 08/30/16 13:52 Limitations: ROS unobtainable due to patients medical condition CPR PMH - Past Medical History Medical history: Reports: arthritis, COPD, coronary artery disease, diabetes, hyperlipidemia, hypertension, other Male Surgical history: Reports: cataract Psychiatric history: Reports: no psych history - Social History Smoking Status: Former smoker Alcohol use: Reports: none Drug use: Reports: none Physical Exam - General Limitations: other (Altered mentation, cardiac arrest) General appearance: other (Unresponsive, in extremities) Course Vital Signs Temperature 0 F L 11/22/16 13:50 Pulse Rate 0 11/22/16 13:50 Respiratory Rate 0 11/22/16 13:50 Blood Pressure 0/0 11/22/16 13:50 O2 Sat by Pulse Oximetry 0 L 11/22/16 13:50 Temperature 37.3 F L 11/22/16 20:00 Pulse Rate 41 11/22/16 20:00 Respiratory Rate 16 11/22/16 20:00 Blood Pressure 172/108 11/22/16 20:00 O2 Sat by Pulse Oximetry 100 11/22/16 20:00 Oxygen Delivery Oxygen Delivery Ambu Bag Procedures - Central Line Placement Left IJ Central Line Inserted*: Yes Central Line Insertion: emergent Procedural Pause: verify patient name and date of , timeout performed per policy, rosa m and assess the site, assemble equipment and verify supplies, perform hand hygiene Patient Placed on Monitor/Pulse Ox: Yes During the Procedure: clinician is wearing sterile gloves, cap, mask,& gown during insertion, sterile field and sterile technique are maintained, patient's face is covered with drape or mask and wearing a cap, everyone in room is wearing a mask Central Line Prep: Chlorhexidine scrub Prep the Procedure Site: apply chloraprep to the skin using a back and forth scrubbing motion, apply chloraprep for 30 seconds (upper body), 1-2 min ( femoral sites), drape the patient with a full body drape Ultrasound Used for Placement: Yes Central Line Lumen Inserted: triple Post Procedure: sutured in place, good blood return, all ports aspirated, flushed, capped, sterile dressing applied, guide wire removed and visualized, dressing is dated Post Procedure X-Ray: tip of catheter in good position, no pneumothorax seen Patient Tolerated Procedure: well, no complications Complications: none Name of Clinician Inserting Central Line: Walker Cee Clinician Assisting/Completing Checklist: Ariana Seth Date: 11/22/16 Time: 15:20 - Intubation Time out performed: Yes sedative: none Laryngoscope: Salvador ET Tube Size: 8 ET Tube Uncuffed: No Tube Secured Depth (cm): 23 Tube Secured Location: lips Tube Placement Confirmation: visualized tube passing through cords, equal breath sounds bilaterally, no breath sounds over epigastrium, confirmation by capnometry Patient Tolerated Procedure: well, no complications Intubation Complications: none Cardiac Arrest/CPR - MDM Narrative Medical decision making narrative: This is a procedure note - Lab Data Result diagrams: 11/22/16 13:50 11/22/16 13:50 Lab Results 11/22/16 11/22/16 11/22/16 Range/Units 13:50 13:50 13:50 WBC 14.3 H (4.3-11.1) K/mcL RBC 5.59 H (4.19-5.50) M/mcL Hgb 14.6 (12.9-16.9) g/dL Hct 54.5 H (37.5-50.1) % MCV 97.5 (83.0-100.0) fL MCH 26.1 L (28.0-33.3) pg MCHC 26.8 L (31.6-35.5) g/dL RDW 15.1 H (11.5-14.5) % Plt Count 225 (140-400) K/mcL MPV 10.5 (9.4-12.4) fL Immature Gran % 4.3 H (0-4) % Seg Neutrophils % 54.9 % Lymphocytes % 23.4 % Monocytes % 16.1 % Eosinophils % 0.5 % Basophils % 0.8 % Neutrophils # 7.9 (1.6-8.9) K/mcL Lymphocytes # 3.4 (0.6-4.6) K/mcL Monocytes # 2.3 H (0.0-1.3) K/mcL Eosinophils # 0.1 (0.0-0.6) K/mcL Basophils # 0.1 (0.0-0.2) K/mcL Nucleated RBCs/100 WBC 0.3 H (0) /100 WBC Platelet Estimate Normal (Normal) Large Platelets Present A (Not Present) Polychromasia 1+ A (Not Present) Hypochromasia Present A (Not Present) PT 12.7 H (9.4-12.1) Seconds INR 1.2 APTT 28.2 (26.0-36.0) Seconds ABG pH (7.32-7.45) pH Units ABG pCO2 (35-45) mmHg ABG pO2 (85-104) mmHg ABG HCO3 (21-27) mEQ/L ABG Total CO2 (20-26) mEq/L ABG O2 Saturation (95-98) % ABG Base Excess (-2.0 to 3.0) mEq/L Blood Gas Modality Inspired O2 % Sodium 150 H (136-145) mEq/L Potassium 5.0 H (3.5-4.5) mEq/L Chloride 101 (98-109) mEq/L Carbon Dioxide 36 H (19-29) mEq/L BUN 25 (8-26) mg/dL Creatinine 0.99 (0.72-1.25) mg/dL Est GFR ( Amer) > 60 (> 60) Est GFR (Non-Af Amer) > 60 (> 60) BUN/Creatinine Ratio 25 (6-26) Glucose 155 H (70-99) mg/dL POC Glucose (58-89) Calculated Osmolality 318 H (280-300) Lactic Acid (0.5-2.2) mmol/L Calcium 9.7 (8.6-10.8) mg/dL Magnesium 1.9 (1.6-2.6) mg/dL Troponin I (0-0.03) ng/mL 11/22/16 11/22/16 11/22/16 Range/Units 13:50 13:50 14:02 WBC (4.3-11.1) K/mcL RBC (4.19-5.50) M/mcL Hgb (12.9-16.9) g/dL Hct (37.5-50.1) % MCV (83.0-100.0) fL MCH (28.0-33.3) pg MCHC (31.6-35.5) g/dL RDW (11.5-14.5) % Plt Count (140-400) K/mcL MPV (9.4-12.4) fL Immature Gran % (0-4) % Seg Neutrophils % % Lymphocytes % % Monocytes % % Eosinophils % % Basophils % % Neutrophils # (1.6-8.9) K/mcL Lymphocytes # (0.6-4.6) K/mcL Monocytes # (0.0-1.3) K/mcL Eosinophils # (0.0-0.6) K/mcL Basophils # (0.0-0.2) K/mcL Nucleated RBCs/100 WBC (0) /100 WBC Platelet Estimate (Normal) Large Platelets (Not Present) Polychromasia (Not Present) Hypochromasia (Not Present) PT (9.4-12.1) Seconds INR APTT (26.0-36.0) Seconds ABG pH (7.32-7.45) pH Units ABG pCO2 (35-45) mmHg ABG pO2 (85-104) mmHg ABG HCO3 (21-27) mEQ/L ABG Total CO2 (20-26) mEq/L ABG O2 Saturation (95-98) % ABG Base Excess (-2.0 to 3.0) mEq/L Blood Gas Modality Inspired O2 % Sodium (136-145) mEq/L Potassium (3.5-4.5) mEq/L Chloride (98-109) mEq/L Carbon Dioxide (19-29) mEq/L BUN (8-26) mg/dL Creatinine (0.72-1.25) mg/dL Est GFR ( Amer) (> 60) Est GFR (Non-Af Amer) (> 60) BUN/Creatinine Ratio (6-26) Glucose (70-99) mg/dL POC Glucose 145 H (58-89) Calculated Osmolality (280-300) Lactic Acid 3.7 H (0.5-2.2) mmol/L Calcium (8.6-10.8) mg/dL Magnesium (1.6-2.6) mg/dL Troponin I 0.03 (0-0.03) ng/mL 11/22/16 Range/Units 14:26 WBC (4.3-11.1) K/mcL RBC (4.19-5.50) M/mcL Hgb (12.9-16.9) g/dL Hct (37.5-50.1) % MCV (83.0-100.0) fL MCH (28.0-33.3) pg MCHC (31.6-35.5) g/dL RDW (11.5-14.5) % Plt Count (140-400) K/mcL MPV (9.4-12.4) fL Immature Gran % (0-4) % Seg Neutrophils % % Lymphocytes % % Monocytes % % Eosinophils % % Basophils % % Neutrophils # (1.6-8.9) K/mcL Lymphocytes # (0.6-4.6) K/mcL Monocytes # (0.0-1.3) K/mcL Eosinophils # (0.0-0.6) K/mcL Basophils # (0.0-0.2) K/mcL Nucleated RBCs/100 WBC (0) /100 WBC Platelet Estimate (Normal) Large Platelets (Not Present) Polychromasia (Not Present) Hypochromasia (Not Present) PT (9.4-12.1) Seconds INR APTT (26.0-36.0) Seconds ABG pH 7.23 L (7.32-7.45) pH Units ABG pCO2 91 H* (35-45) mmHg ABG pO2 372 H (85-104) mmHg ABG HCO3 30 H (21-27) mEQ/L ABG Total CO2 40.9 H (20-26) mEq/L ABG O2 Saturation 100 H (95-98) % ABG Base Excess 6.4 H (-2.0 to 3.0) mEq/L Blood Gas Modality ASSIST CONTROL Inspired O2 100 % Sodium (136-145) mEq/L Potassium (3.5-4.5) mEq/L Chloride (98-109) mEq/L Carbon Dioxide (19-29) mEq/L BUN (8-26) mg/dL Creatinine (0.72-1.25) mg/dL Est GFR ( Amer) (> 60) Est GFR (Non-Af Amer) (> 60) BUN/Creatinine Ratio (6-26) Glucose (70-99) mg/dL POC Glucose (58-89) Calculated Osmolality (280-300) Lactic Acid (0.5-2.2) mmol/L Calcium (8.6-10.8) mg/dL Magnesium (1.6-2.6) mg/dL Troponin I (0-0.03) ng/mL
[2016-11-22] MEDS ORDERED: Calcium Gluconate 1,000 MG in D5% in Water 100 ML IVPB PRN (16:16)
[2016-11-22] MEDS ORDERED: Potassium Chloride 40 MEQ/200 ML BAG IVPB PRN (16:16)
[2016-11-22] MEDS ORDERED: Potassium Phosphate 44 MEQ in 0.9 % Sodium Chloride 250 ML IVPB PRN (16:16)
[2016-11-22] MEDS ORDERED: Magnesium Sulfate 2 GM in D5% in Water 100 ML IVPB PRN (16:16)
--- NOTE | 2016-11-22 16:47 | Event Note ---
Date of Encounter: 11/22/16 Time of Encounter: 16:45 High further discuss goals of care with the family, including the sister who is the power of patent attorney. The patient will be DNR CCA moving forward. Possible transition to DNR comfort care if his clinical status would continue to decline , or if there is sign of severe anoxic injury after he undergoes hypothermia protocol.
[2016-11-22 17:20] LABS: Albumin 2.8 g/dL (3.5-5.0); Albumin/Globulin Ratio 1.1 (1.1-2.2); Bilirubin,Direct 0.2 mg/dL (0.0-0.5); Bilirubin,Indirect 0.3 mg/dL (0.0-1.2); Bilirubin,Total 0.5 mg/dL (0.2-1.2); Globulin 2.5 g/dL (2.4-3.5); Total Protein 5.3 g/dL (6.0-8.3)
[2016-11-22] MEDS ORDERED: *HR* Vecuronium 10 MG VIAL IVP ONE (18:27)
[2016-11-22] MEDS ORDERED: *HR* Atropine Sulfate 1 MG/10 ML SYRINGE ONE (19:55)
[2016-11-22] MEDS: Norepinephrine 16 MG in D5% in Water 500 ML IV SCH (20:16)
[2016-11-22] MEDS: Docusate Oral Soln 100 MG/10 ML UDC GTUBE SCH (20:22)
[2016-11-22] MEDS: *HR* Heparin 5,000 UNIT/ML VIAL SQ SCH (20:30)
[2016-11-22] MEDS: 0.9 % Sodium Chloride 1,000 ML IVC SCH (21:50)
[2016-11-22] MEDS: Amiodarone Premix 360 MG/200 ML BAG IVC SCH (22:21)
[2016-11-23] MEDS: Ipratropium/Albuterol Neb 3 ML IH SCH ×4 (00:52→15:58)
[2016-11-23] MEDS: *HR* Heparin 5,000 UNIT/ML VIAL SQ SCH ×2 (01:01→09:33)
[2016-11-23] MEDS: 0.9 % Sodium Chloride 1,000 ML IVC SCH (01:02)
[2016-11-23 04:01] LABS: Nucleated Red Blood Cells 0.4 /100 WBC (0)
[2016-11-23 04:02] LABS: Hematocrit 54.6 % (37.5-50.1); Hemoglobin 15.4 g/dL (12.9-16.9); Mean Corpuscular HGB Conc 28.2 g/dL (31.6-35.5); Mean Corpuscular Volume 92.2 fL (83.0-100.0); Mean Platelet Volume 10.4 fL (9.4-12.4); Platelet Count 173 K/mcL (140-400); Red Blood Count 5.92 M/mcL (4.19-5.50); Red Cell Distribution Width 15.4 % (11.5-14.5)
[2016-11-23 04:07] LABS: INR 1.1; Prothrombin Time 11.9 Seconds (9.4-12.1)
[2016-11-23 04:17] LABS: Albumin 3.1 g/dL (3.5-5.0); Albumin/Globulin Ratio 1.1 (1.1-2.2); Bilirubin,Direct 0.2 mg/dL (0.0-0.5); Bilirubin,Indirect 0.5 mg/dL (0.0-1.2); Bilirubin,Total 0.7 mg/dL (0.2-1.2); Calcium 9.7 mg/dL (8.6-10.8); Globulin 2.9 g/dL (2.4-3.5)
[2016-11-23 04:23] LABS: Potassium 5.2 mEq/L (3.5-4.5)
[2016-11-23 04:39] LABS: Lymphocytes # 4.1 K/mcL (0.6-4.6); Monocytes # 0.7 K/mcL (0.0-1.3); Neutrophils # 13.6 K/mcL (1.6-8.9); Platelet Estimate Normal (Normal)
[2016-11-23 04:40] LABS: Hypochromasia Present (Not Present); Large Platelets Present (Not Present); Reactive Lymphocytes Present (Not Present)
[2016-11-23 04:48] LABS: Magnesium 1.7 mg/dL (1.6-2.6)
[2016-11-23] MEDS: Norepinephrine 16 MG in D5% in Water 500 ML IV SCH ×2 (05:43→14:32)
[2016-11-23] MEDS ORDERED: *HR* Vecuronium 10 MG VIAL IVP ONE (06:20)
--- NOTE | 2016-11-23 07:23 | ECHO - Doppler Report ---
Limited Echocardiogram Name: Jewel Licona Date of Study: 11/22/2016 Date: 1945 Ht: 72.0 in Medical Record#: [id number] Age: 71 Wt: 300.0 lb Gender: Male BSA: 2.53 Order #: [id number] Location: [facility] Room #: 2 Reading Physician: Mike Jefferson MD, [facility] [employer] Custodian: Trish Harding RDCS Ordering Physician: Andrea Adames MD Primary Physician: Indications: Cardiac Arrest Impressions: Technically suboptimal due to clinical status. Patient supine and on ventilator. Severe left ventricular systolic dysfunction, LVEF 15-20%. There is severe global hypokinesis with regional variations. Mild concentric left ventricular hypertrophy. Moderate-severe right ventricular hypokinesis. Valvular function was not assessed on this limited study. There is a trivial-small pericardial effusion present. Ordering physician was present at the time this examination was performed. Left Ventricular Wall Motion: Rest Echo Findings The apex, apical inferior, mid inferior, basal inferior, apical anterior, mid anterior, basal anterior, apical septal, mid inferior septal, basal inferior septal, apical lateral, mid anterior lateral, basal anterior lateral, mid anterior septal, mid inferior lateral, basal anterior septal and basal inferior lateral desai were hypokinetic. Findings: Study Quality * Limited echocardiogram performed. * Technically suboptimal due to clinical status. Patient supine and on ventilator. ECG Findings * Sinus bradycardia with PVCs. Left Ventricle * Severe left ventricular systolic dysfunction, LVEF 15-20%. There is severe global hypokinesis with regional variations. * Normal LV chamber size. * Mild concentric left ventricular hypertrophy. Right Ventricle * Normal right ventricular size. * Moderate-severe right ventricular hypokinesis. Left Atrium * Normal left atrial size. Right Atrium * Normal right atrial size. Aorta * Normally sized aortic root. Pericardium * There is a trivial-small pericardial effusion present. IVC * The IVC is dilated. Measurements: BP: 159/ 66 2D Normal Values RVIDd: 3.33 cm IVSd: 1.20 cm 0.6 - 1.0 cm LVIDd: 5.40 cm 3.7 - 5.6 cm LVPWd: 1.20 cm 0.6 - 1.1 cm LVIDs: 4.80 cm 1.5 - 3.6 cm AO: 3.40 cm < 4.0 cm Updated by Mike Jefferson MD, [facility] on 11/23/2016 7:18:09 AM electronically signed on 11/23/2016 7:19:03 AM with status of Final Wall Motion Millan: 1=Normal, 2=Hypokinesis, 3=Akinesis, 4=Dyskinesis, 5=Aneurysmal, 6=Hyperkinetic, X=Not Visualized (Blank)=Missing
--- NOTE | 2016-11-23 08:56 | Pulmonology History & Physical ---
Date of Encounter: 11/23/16 Time of Encounter: 09:00 History of Present Illness HPI: Mr. Licona is a 71 year old male Past Med Surg Social Fam HX - Past Medical History Medical history: arthritis, COPD, coronary artery disease, diabetes, hyperlipidemia, hypertension, other Psychiatric history: no psych history - Past Surgical History Surgical History: cataract - Social History Smoking Status: Former smoker Smokeless Tobacco Status: No Alcohol use: none Drug use: none - Family History Father Living Status: Cause of : cancer Hx Family Respiratory Disorders: Yes (COPD) Mother Living Status: Cause of : heart disease Hx Family Cardiac Disorders: Yes Medications and Allergies Albuterol Neb [Proventil Neb] 2.5 mg IH Q6H PRN 02/18/16 [History] Albuterol Sulfate [Ventolin Hfa] 2 puff IH Q4-6H PRN 02/18/16 [History] Alprazolam [Xanax 0.5 MG Tablet] 0.5 mg PO BID 02/18/16 [History] Aspirin [Adult Low Dose Aspirin EC] 81 mg PO DAILY 02/18/16 [History] Atorvastatin [Lipitor] 40 mg PO DAILY 02/18/16 [History] Cetirizine HCl [Zyrtec] 10 mg PO DAILY 02/18/16 [History] Enalapril Maleate [Vasotec] 10 mg PO DAILY 02/18/16 [History] Ergocalciferol (VITAMIN D2) [Vitamin D2 (50,000 UNIT)] 50,000 unit PO QWEEK [History] Metformin HCl [Glumetza] 500 mg PO QPM 02/18/16 [History] Montelukast [Singulair] 10 mg PO DAILY 02/18/16 [History] Omeprazole [PriLOSEC] 20 mg PO DAILY 02/18/16 [History] Theophylline Anhydrous [Arash-24] 400 mg PO DAILY 02/18/16 [History] Tizanidine HCl [Zanaflex] 4 mg PO BID 02/18/16 [History] Allopurinol [Zyloprim 300 MG] 300 mg PO DAILY #14 tablet 02/29/16 [Rx] Ondansetron HCl [Zofran] 4 mg PO Q6HR PRN #10 tablet 03/03/16 [Rx] Fluticasone/Salmeterol [Advair 500-50 Diskus] 1 each IH Q12H 05/04/16 [History] Umeclidinium [place] [Incruse Ellipta] 62.5 mcg IH DAILY 05/04/16 [History] Ibrutinib [Imbruvica] 420 mg PO DAILY #90 capsule 08/30/16 [Rx] OxyCODONE/APAP 5/325 [Percocet 5/325 MG] 1 each PO Q6HR PRN #120 tablet [Rx] PredniSONE 10 mg PO DAILY 11/22/16 [History] Allergies nicotine Allergy (Verified 08/30/16 13:52) Blister nitroglycerin Allergy (Verified 08/30/16 13:52) Blister All Systems: A 10-system review of systems was performed and is negative for pertinent findings except as documented above in the HPI. Physical Examination Vital Signs: Vital Signs, Last 4 Hours Temp Pulse Resp BP Pulse Ox 11/23/16 08:00 94.4 F L 54 16 133/84 99 11/23/16 07:44 16 100 11/23/16 07:00 93.5 F L 53 16 120/93 100 11/23/16 06:30 93.0 F L 43 16 112/74 100 11/23/16 06:00 92.7 F L 46 16 59/48 100 11/23/16 05:20 16 98/76 100 11/23/16 05:03 32.1 F L 41 16 105/82 100 Results - Laboratory Findings CBC and BMP: 11/23/16 03:56 11/23/16 03:56 ABG ABG pH 7.23 pH Units (7.32-7.45) L 11/22/16 14:26 ABG pCO2 91 mmHg (35-45) H* 11/22/16 14:26 ABG pO2 372 mmHg (85-104) H 11/22/16 14:26 ABG O2 Saturation 100 % (95-98) H 11/22/16 14:26 PT/INR, D-dimer PT 11.9 Seconds (9.4-12.1) 11/23/16 03:56 Abnormal lab findings: Abnormal lab results WBC 18.4 K/mcL (4.3-11.1) H 11/23/16 03:56 RBC 5.92 M/mcL (4.19-5.50) H 11/23/16 03:56 Hct 54.6 % (37.5-50.1) H 11/23/16 03:56 MCH 26.0 pg (28.0-33.3) L 11/23/16 03:56 MCHC 28.2 g/dL (31.6-35.5) L 11/23/16 03:56 RDW 15.4 % (11.5-14.5) H 11/23/16 03:56 Immature Gran % 4.3 % (0-4) H 11/22/16 13:50 Neutrophils # 13.6 K/mcL (1.6-8.9) H 11/23/16 03:56 Nucleated RBCs/100 WBC 0.4 /100 WBC (0) H 11/23/16 03:56 Reactive Lymphocytes Present (Not Present) A 11/23/16 03:56 Large Platelets Present (Not Present) A 11/23/16 03:56 Polychromasia 1+ (Not Present) A 11/22/16 13:50 Hypochromasia Present (Not Present) A 11/23/16 03:56 ABG pH 7.23 pH Units (7.32-7.45) L 11/22/16 14:26 ABG pCO2 91 mmHg (35-45) H* 11/22/16 14:26 ABG pO2 372 mmHg (85-104) H 11/22/16 14:26 ABG HCO3 30 mEQ/L (21-27) H 11/22/16 14:26 ABG Total CO2 40.9 mEq/L (20-26) H 11/22/16 14:26 ABG O2 Saturation 100 % (95-98) H 11/22/16 14:26 ABG Base Excess 6.4 mEq/L (-2.0 to 3.0) H 11/22/16 14:26 Potassium 5.2 mEq/L (3.5-4.5) H 11/23/16 03:56 BUN 42 mg/dL (8-26) H D 11/23/16 03:56 Creatinine 2.08 mg/dL (0.72-1.25) H D 11/23/16 03:56 Est GFR ( Amer) 38 (> 60) L 11/23/16 03:56 Est GFR (Non-Af Amer) 32 (> 60) L 11/23/16 03:56 Glucose 163 mg/dL (70-99) H 11/23/16 03:56 POC Glucose 121 (58-89) H 11/23/16 08:26 Calculated Osmolality 310 (280-300) H 11/23/16 03:56 Lactic Acid 3.1 mmol/L (0.5-2.2) H 11/23/16 04:45 AST 70 Units/L (5-34) H 11/23/16 03:56 ALT 76 Units/L (0-55) H 11/23/16 03:56 Troponin I 0.66 ng/mL (0-0.03) H* 11/23/16 03:56 Albumin 3.1 g/dL (3.5-5.0) L 11/23/16 03:56
[2016-11-23] MEDS ORDERED: Pantoprazole 40 MG VIAL IVPB SCH (09:00)
[2016-11-23] MEDS: Docusate Oral Soln 100 MG/10 ML UDC GTUBE SCH (09:33)
[2016-11-23] MEDS: Amiodarone Premix 360 MG/200 ML BAG IVC SCH (10:00)
--- NOTE | 2016-11-23 11:09 | Event Note ---
Date of Encounter: 11/23/16 Time of Encounter: 11:06 I had a goals of care meeting with the patient's family, including the patient' s sister who is the medical decision maker. The patient has 2 sons, one is incarcerated and unavailable, and the other son is deferring decision making to the patient's sister. I gave the family a medical update on the patient, including his likely severe anoxic brain injury, cardiomyopathy, and renal failure. The family had been discussing goals of care and had reached a consensus that they would like to stop aggressive measures and pursue comfort care only. The current plan is to stop therapeutic hypothermia and begin rewarming the patient. The family will call in additional family members she would like to be here. When the family is ready, we will proceed with compassionate extubation and initiation of comfort care only. Current CODE STATUS is DNR CCA. We will not continue to escalate care. When the family is ready we will change to DNR CC.
--- NOTE | 2016-11-23 11:52 | Cardiology Progress Note ---
Date of Encounter: 11/23/16 Time of Encounter: 11:50 Assessment and Plan (1) Cardiac arrest Current Visit: Yes Status: Acute Out of hospital cardiac arrest. > 20 minutes CPR. According to reports, worsening respiratory failure in the weeks and months leading up to today. Brief episode of VF in ER - amiodarone. EF severely reduced. Overall condition appears grave. Per ICU, family has elected to withdraw care and focus on comfort. It seems his quality of life was quite poor prior to this event and his current condition is grave. I agree with the family and believe that comfort care is appropriate. Discussion w patient/family: The assessment and plan as outlined above was discussed with the patient and/or family members who expressed understanding and agreement. All questions were answered. Thank you for involving us in the care of your patient. Please call with any questions. Subjective Principal diagnosis: CPA Interval history: Condition remains grave. Sinus bradycardia with frequent PVCs on monitor. Hypothermic protocol in place. Cr worsening. No urine output. Noted echocardiogram results. Per ICU, overall status remains grave. Objective Vital Signs, Last 4 Hours Temp Pulse Resp BP Pulse Ox 11/23/16 11:15 16 100 11/23/16 11:10 16 100 11/23/16 11:00 93.2 F L 52 16 113/90 96 11/23/16 10:00 94.0 F L 61 16 120/99 96 11/23/16 09:00 93.8 F L 54 16 122/99 99 11/23/16 08:40 54 11/23/16 08:00 94.4 F L 54 16 133/84 99 General: Other (Critical condition) HEENT: Other (large neck. unable to assess for jvd) Cardiac: Other (Very distant. Unable to appreciate heart tones) Lungs: Other (Shallow, rhonchi. ) Neuro: Other (No spontaneous movements.) Abdomen: Other (Morbidly obese. ) Skin: No rashes noted on visualized skin Extremities: No Edema Results 11/23/16 03:56 11/23/16 03:56 Lab Results 11/22/16 11/22/16 11/23/16 16:45 16:45 03:56 WBC Hgb Hct Plt Count INR Sodium Potassium Chloride Carbon Dioxide BUN Creatinine Glucose Calcium Magnesium Total Bilirubin 0.5 AST 39 H ALT 39 Alkaline Phosphatase 62 Troponin I 0.08 H* 0.66 H* 11/23/16 11/23/16 11/23/16 03:56 03:56 03:56 WBC 18.4 H Hgb 15.4 Hct 54.6 H Plt Count 173 INR 1.1 Sodium 143 Potassium 5.2 H Chloride 101 Carbon Dioxide 28 BUN 42 H D Creatinine 2.08 H D Glucose 163 H Calcium 9.7 Magnesium 1.7 Total Bilirubin 0.7 AST 70 H ALT 76 H Alkaline Phosphatase 66 Troponin I - Imaging and Cardiology Echo: report reviewed Consult Discharge Plan - Plan Referrals: NO,PCP [Non-Partnered Physician] -
[2016-11-23] MEDS ORDERED: FentaNYL (PF) 1,000 MCG in 0.9 % Sodium Chloride 80 ML IVC SCH (12:58)
--- NOTE | 2016-11-23 13:37 | Electrocardiograph Report ---
[facility] Test Date: 2016-11-22 Pat Name: Jewel Licona Department: 103 Room: 02 Gender: M Bath Steward: : 1945 Requested By: Trish See Order Number: [id number] Reading MD: Hugo Chou MD Measurements Intervals [place] Rate: 159 P: [place]: 0 QRS: 69 QRSD: 102 T: 0 QT: 241 QTc: 330 Interpretive Statements ATRIAL FIBRILLATION WITH RAPID VENTRICULAR RESPONSE DIFFUSE SUBENDOCARDIAL INJURY, POSSIBLY SECONDARY TO RVR Electronically Signed On 11-23-16 13:36:38 EST by Hugo Chou MD
--- NOTE | 2016-11-23 13:38 | Electrocardiograph Report ---
[facility] Test Date: 2016-11-22 Pat Name: BRIGETTE HERNANDEZ Department: 103 Room: 02 Gender: M Front Desk: SAT : 1945 Requested By: Andrea Adames Order Number: [id number] Reading MD: Hugo Chou MD Measurements Intervals [place] Rate: 75 P: 57 AR: 194 QRS: 73 QRSD: 109 T: 83 QT: 359 QTc: 388 Interpretive Statements SINUS RHYTHM Electronically Signed On 11-23-16 13:36:46 EST by Hugo Chou MD
[2016-11-23 14:01] LABS: Acinetobacter baumannii by PCR Not Detected (Not Detect); Candida albicans by PCR Not Detected (Not Detect); Candida glabrata by PCR Not Detected (Not Detect); Candida krusei by PCR Not Detected (Not Detect); Candida parapsilosis by PCR Not Detected (Not Detect); Candida tropicalis by PCR Not Detected (Not Detect); Enterococcus by PCR Not Detected (Not Detect); Escherichia coli by PCR Not Detected (Not Detect); Klebsiella oxytoca by PCR Not Detected (Not Detect); Klebsiella pneumoniae by PCR Not Detected (Not Detect); Pseudomonas aeruginosa by PCR Not Detected (Not Detect); Serratia marcescens by PCR Not Detected (Not Detect); Staphylococcus aureus by PCR Not Detected (Not Detect); Streptococcus agalactiae(B)PCR Not Detected (Not Detect); Streptococcus by PCR Not Detected (Not Detect); Streptococcus pneumoniae PCR Not Detected (Not Detect); Streptococcus pyogenes (A) PCR Not Detected (Not Detect); blaKPC Carbapenem-Resist Gene Not Detected (Not Detect); mecA Methicillin-Resist Gene Not Detected (Not Detect); vanA/B Vancomycin-Resist Genes Not Detected (Not Detect)
--- NOTE | 2016-11-23 14:03 | Pulmonology Progress Note ---
<Leeann Mathur - Last Filed: 11/23/16 17:45> Date of Encounter: 11/23/16 Time of Encounter: 08:00 Assessment and Plan (1) Cardiac arrest Status: Acute Unclear etiology however may be due to cardiac or pulmonary cause of cardiac arrests given his underlying COPD and obesity hypoventilation syndrome. Patient also uses opioids which can further compound respiratory depression. More than 24 minutes of CPR reported and significant concern for anoxic injury. Patient is currently on vasopressors nor epi at 30 and amiodarone to prevent arrhythmia as patient had an episode of VF in the ER. He had been exhibiting PVCs and conduction delays as well as intermittent irregular heart rate. Echo demonstrates LVEF 15-20% severe global hypokinesis. Patient is intubated and sedated on vent. on exam patient is unresponsive, pupils nonreactive, anuric. Very poor prognosis. Lactic acid is 3.1 and troponin of 0.66. Hypothermic protocol began on arrival to ICU with goal achieved at 1:00 AM. Patient is DNR. Will discuss with family - possibility of withdrawing support and rewarming to occur when family arrives to ICU together. Time currently undetermined. Comfort care appropriate. (2) Encephalopathy Status: Acute Significant concern for anoxic brain injury given prolonged CPR time greater than 24 minutes and concurrent physical exam findings. Patient is unresponsive , pupils unreactive, exhibiting myoclonic jerking. Daily neurologic checks. Head CT when patient is stable. (3) Obesity hypoventilation syndrome Status: Acute Patient has a baseline PCO2 of 62 and his BMI is 40. Additional factors contributing to alveolar hypoventilation syndrome include sleep apnea and COPD. Patient at high risk of cor pulmonale. Patient has been dependent on BiPAP at home wearing it [id number] for the past few weeks skipping meals in order to breathe. Poor quality of life. Continue treatment: endotracheal tube and mechanical ventilator. Repeat chest x-ray in the morning. (4) Acute on chronic respiratory failure with hypoxia and hypercapnia Status: Acute Hypoxemia and hypercapnia at baseline. Currently in the setting of cardiac arrest with significant risk for requiring tracheostomy tube dependent on clinical course and goals that were discussed with the family. ABG in the morning and continue to ventilate as above. (5) COPD (chronic obstructive pulmonary disease) Status: Acute Emphysematous changes on prior chest x-rays with demonstration of large bulla on the left. Continue bronchodilators. Qualifiers: COPD type: emphysema Emphysema type: unspecified Qualified Code(s): J43.9 - Emphysema, unspecified (6) Acute and chronic respiratory failure with hypercapnia Status: Chronic (7) CLL (chronic lymphocytic leukemia) Status: Chronic Abnormal chest x-ray today when compared to prior. Demonstrates a right lower lobe mass 3 x 9 cm worrisome for malignancy/bronchogenic carcinoma. Patient had a CT of the chest on 08/28/16 that demonstrated: a new irregular nodule in the right lower lobe. Given underlying emphysema, lung carcinoma should be considered. Recommend PET CT further characterization. Patient was seen by Dr. Zhao on 10/02/16 for follow-up of his CLL and his massive lymphadenopathy that the patient had been ignoring for a year. He was subsequently treated with 5 cycles of GAZYVA and then started on ibrutinib. (8) Obstructive sleep apnea Status: Chronic (9) Type 2 diabetes mellitus Status: Chronic Qualifiers: Diabetes mellitus complication status: with unspecified complications Diabetes mellitus [facility] insulin use: without [facility] use Qualified Code( s): E11.8 - Type 2 diabetes mellitus with unspecified complications Subjective Principal diagnosis: CPA Interval history: At home, patient was dependent on BiPAP and had been missing meals in order to breathe for the past week. Patient suffered cardiac arrest en route to the hospital asystole/PEA with more than 24 minutes of CPR. In the ED, 2 rounds of ACLS before ROSC was achieved. Significant concern for anoxic injury. Patient is currently on amiodarone, norepinephrine, propofol, fentanyl; it intubated on a vent at 16/600/50/8 currently oxygen saturation at 99-100%. Hyperthermic protocols began at 1 AM. Patient was noted to have tremors and twitching for which vecuronium was given. Patient remained anuric. Significant bump in creatinine up to 2.08 today and BUN has gone down to 25. Patient family will further discuss withdrawal of support today and DNR status. Awaiting all family members to arrive. Objective PUL Vital signs: Last Vital Signs Temp 91.4 F L 11/23/16 13:00 Pulse 43 11/23/16 13:00 Resp 16 11/23/16 13:00 BP 111/91 11/23/16 13:00 Pulse Ox 100 11/23/16 13:00 General appearance: other (Intubated and sedated) Eyes: other (1+ nonreactive) ENT: oropharynx dry Neck: supple, no JVD Effort: other (Ventilator at 16/600/50/8) Auscultation: bilateral: diminished breath sounds Cardiovascular: irregular rhythm, PVC's noted Gastrointestinal: normoactive bowel sounds, soft, other (Obese) Integumentary: normal Extremities: pink and warm, pulses normal Musculoskeletal: no deformities unable to assess due to mental status Ventilator Settings Ventilator Settings: Ventilator Settings, Last 8 Hours Ventilator Mode A/C Ventilator Mode A/C Ventilator Mode A/C Ventilator Mode A/C Ventilator Mode A/C Ventilator Mode A/C Ventilator Mode A/C Ventilator Mode A/C Ventilator Mode A/C Ventilator Tidal Volume 600 Setting Ventilator Tidal Volume 600 Setting Ventilator Tidal Volume 600 Setting Ventilator Tidal Volume 600 Setting Ventilator Tidal Volume 600 Setting Ventilator Tidal Volume 600 Setting Ventilator Tidal Volume 600 Setting Ventilator Tidal Volume 600 Setting Ventilator Tidal Volume 600 Setting Ventilator Respiratory Rate 16 Setting Ventilator Respiratory Rate 16 Setting Ventilator Respiratory Rate 16 Setting Ventilator Respiratory Rate 16 Setting Ventilator Respiratory Rate 16 Setting Ventilator Respiratory Rate 16 Setting Ventilator Respiratory Rate 16 Setting Ventilator Respiratory Rate 16 Setting Ventilator Respiratory Rate 16 Setting Actual Respiratory Rate 16 Actual Respiratory Rate 16 Actual Respiratory Rate 16 Actual Respiratory Rate 16 Actual Respiratory Rate 16 Actual Respiratory Rate 16 Actual Respiratory Rate 16 Actual Respiratory Rate 16 Actual Respiratory Rate 16 Positive End Expiratory 8 Pressure Positive End Expiratory 8 Pressure Positive End Expiratory 8 Pressure Positive End Expiratory 8 Pressure Peak Inspiratory Airway 41 Pressure Peak Inspiratory Airway 40 Pressure Peak Inspiratory Airway 44 Pressure Peak Inspiratory Airway 47 Pressure Peak Inspiratory Airway 44 Pressure Peak Inspiratory Airway 44 Pressure Peak Inspiratory Airway 41 Pressure Peak Inspiratory Airway 40 Pressure Peak Inspiratory Airway 40 Pressure Results - Laboratory Findings CBC and BMP: 11/23/16 03:56 11/23/16 03:56 ABG ABG pH 7.23 pH Units (7.32-7.45) L 11/22/16 14:26 ABG pCO2 91 mmHg (35-45) H* 11/22/16 14:26 ABG pO2 372 mmHg (85-104) H 11/22/16 14:26 ABG O2 Saturation 100 % (95-98) H 11/22/16 14:26 PT/INR, D-dimer PT 11.9 Seconds (9.4-12.1) 11/23/16 03:56 Abnormal lab findings: Abnormal lab results WBC 18.4 K/mcL (4.3-11.1) H 11/23/16 03:56 RBC 5.92 M/mcL (4.19-5.50) H 11/23/16 03:56 Hct 54.6 % (37.5-50.1) H 11/23/16 03:56 MCH 26.0 pg (28.0-33.3) L 11/23/16 03:56 MCHC 28.2 g/dL (31.6-35.5) L 11/23/16 03:56 RDW 15.4 % (11.5-14.5) H 11/23/16 03:56 Immature Gran % 4.3 % (0-4) H 11/22/16 13:50 Neutrophils # 13.6 K/mcL (1.6-8.9) H 11/23/16 03:56 Nucleated RBCs/100 WBC 0.4 /100 WBC (0) H 11/23/16 03:56 Reactive Lymphocytes Present (Not Present) A 11/23/16 03:56 Large Platelets Present (Not Present) A 11/23/16 03:56 Polychromasia 1+ (Not Present) A 11/22/16 13:50 Hypochromasia Present (Not Present) A 11/23/16 03:56 ABG pH 7.23 pH Units (7.32-7.45) L 11/22/16 14:26 ABG pCO2 91 mmHg (35-45) H* 11/22/16 14:26 ABG pO2 372 mmHg (85-104) H 11/22/16 14:26 ABG HCO3 30 mEQ/L (21-27) H 11/22/16 14:26 ABG Total CO2 40.9 mEq/L (20-26) H 11/22/16 14:26 ABG O2 Saturation 100 % (95-98) H 11/22/16 14:26 ABG Base Excess 6.4 mEq/L (-2.0 to 3.0) H 11/22/16 14:26 Potassium 5.2 mEq/L (3.5-4.5) H 11/23/16 03:56 BUN 42 mg/dL (8-26) H D 11/23/16 03:56 Creatinine 2.08 mg/dL (0.72-1.25) H D 11/23/16 03:56 Est GFR ( Amer) 38 (> 60) L 11/23/16 03:56 Est GFR (Non-Af Amer) 32 (> 60) L 11/23/16 03:56 Glucose 163 mg/dL (70-99) H 11/23/16 03:56 POC Glucose 126 (58-89) H 11/23/16 12:23 Calculated Osmolality 310 (280-300) H 11/23/16 03:56 Lactic Acid 3.1 mmol/L (0.5-2.2) H 11/23/16 04:45 AST 70 Units/L (5-34) H 11/23/16 03:56 ALT 76 Units/L (0-55) H 11/23/16 03:56 Troponin I 0.66 ng/mL (0-0.03) H* 11/23/16 03:56 Albumin 3.1 g/dL (3.5-5.0) L 11/23/16 03:56 - Clinical Findings Intake & Output: Intake & Output 11/22/16 11/23/16 11/23/16 23:59 07:59 15:59 Intake Total 160 / 160 546 / 546 300 / 300 Output Total 700 / 700 300 / 300 0 / 0 Balance -540 / -540 246 / 246 300 / 300 Weight 136.1 kg Consult Discharge Plan - Plan Referrals: NO,PCP [Non-Partnered Physician] - <Andrea Adames - Last Filed: 11/24/16 07:37> Date of Encounter: 11/24/16 Assessment and Plan (1) Cardiac arrest Status: Acute (2) Acute on chronic respiratory failure with hypoxia and hypercapnia Status: Acute (3) Encephalopathy Status: Acute (4) Obesity hypoventilation syndrome Status: Acute (5) COPD (chronic obstructive pulmonary disease) Status: Acute Qualifiers: COPD type: emphysema Emphysema type: unspecified Qualified Code(s): J43.9 - Emphysema, unspecified (6) Abnormal chest x-ray Status: Acute Objective PUL Vital signs: Last Vital Signs Temp 89.2 F L 11/23/16 15:00 Pulse 46 11/23/16 15:00 Resp 16 11/23/16 15:54 BP 101/62 11/23/16 15:00 Pulse Ox 100 11/23/16 15:54 Results - Laboratory Findings CBC and BMP: 11/23/16 03:56 11/23/16 03:56 ABG ABG pH 7.23 pH Units (7.32-7.45) L 11/22/16 14:26 ABG pCO2 91 mmHg (35-45) H* 11/22/16 14:26 ABG pO2 372 mmHg (85-104) H 11/22/16 14:26 ABG O2 Saturation 100 % (95-98) H 11/22/16 14:26 PT/INR, D-dimer PT 11.9 Seconds (9.4-12.1) 11/23/16 03:56 Abnormal lab findings: Abnormal lab results WBC 18.4 K/mcL (4.3-11.1) H 11/23/16 03:56 RBC 5.92 M/mcL (4.19-5.50) H 11/23/16 03:56 Hct 54.6 % (37.5-50.1) H 11/23/16 03:56 MCH 26.0 pg (28.0-33.3) L 11/23/16 03:56 MCHC 28.2 g/dL (31.6-35.5) L 11/23/16 03:56 RDW 15.4 % (11.5-14.5) H 11/23/16 03:56 Immature Gran % 4.3 % (0-4) H 11/22/16 13:50 Neutrophils # 13.6 K/mcL (1.6-8.9) H 11/23/16 03:56 Nucleated RBCs/100 WBC 0.4 /100 WBC (0) H 11/23/16 03:56 Reactive Lymphocytes Present (Not Present) A 11/23/16 03:56 Large Platelets Present (Not Present) A 11/23/16 03:56 Polychromasia 1+ (Not Present) A 11/22/16 13:50 Hypochromasia Present (Not Present) A 11/23/16 03:56 ABG pH 7.23 pH Units (7.32-7.45) L 11/22/16 14:26 ABG pCO2 91 mmHg (35-45) H* 11/22/16 14:26 ABG pO2 372 mmHg (85-104) H 11/22/16 14:26 ABG HCO3 30 mEQ/L (21-27) H 11/22/16 14:26 ABG Total CO2 40.9 mEq/L (20-26) H 11/22/16 14:26 ABG O2 Saturation 100 % (95-98) H 11/22/16 14:26 ABG Base Excess 6.4 mEq/L (-2.0 to 3.0) H 11/22/16 14:26 Potassium 5.2 mEq/L (3.5-4.5) H 11/23/16 03:56 BUN 42 mg/dL (8-26) H D 11/23/16 03:56 Creatinine 2.08 mg/dL (0.72-1.25) H D 11/23/16 03:56 Est GFR ( Amer) 38 (> 60) L 11/23/16 03:56 Est GFR (Non-Af Amer) 32 (> 60) L 11/23/16 03:56 Glucose 163 mg/dL (70-99) H 11/23/16 03:56 POC Glucose 126 (58-89) H 11/23/16 12:23 Calculated Osmolality 310 (280-300) H 11/23/16 03:56 Lactic Acid 3.1 mmol/L (0.5-2.2) H 11/23/16 04:45 AST 70 Units/L (5-34) H 11/23/16 03:56 ALT 76 Units/L (0-55) H 11/23/16 03:56 Troponin I 0.66 ng/mL (0-0.03) H* 11/23/16 03:56 Albumin 3.1 g/dL (3.5-5.0) L 11/23/16 03:56 Staphylococcus sp PCR DETECTED (Not Detect) A 11/22/16 16:45 - Microbiology Findings Microbiology Findings: Microbiology, Last 48 Hours 11/22/16 16:45 Blood Culture - Preliminary Peripheral Venipuncture Gram Positive Cocci - Clinical Findings Intake & Output: Intake & Output 11/23/16 11/23/16 11/24/16 15:59 23:59 07:59 Intake Total 900 / 900 Output Total 0 / 0 Balance 900 / 900 - Attending Attestation The patient was seen and examined with the house staff on 11/23/2016. Please see my discharge summary and event notes from that date. Total direct critical care time excluding procedures: 35 minutes
--- NOTE | 2016-11-23 14:26 | Electrocardiograph Report ---
[facility] Test Date: 2016-11-22 Pat Name: Jewel Licona Department: 103 Room: 02 Gender: M Preparation Room Manager: ARIANE : 1945 Requested By: Trish See Order Number: [id number] Reading MD: Hugo Chou MD Measurements Intervals [place] Rate: 108 P: [place]: 0 QRS: 67 QRSD: 98 T: 72 QT: 260 QTc: 323 Interpretive Statements SINUS TACHYCARDIA WITH PAC AND PVC INFEROLATERAL ISCHEMIA Electronically Signed On 11-23-16 14:25:09 EST by Hguo Chou MD
[2016-11-23] MEDS ORDERED: Vancomycin 1,000 MG in D5% in Water 250 ML IVPB ONE (15:00)
[2016-11-23 15:23] VITALS: BP 101/62
[2016-11-23] MEDS ORDERED: *HR* LORazepam 2 MG/ML VIAL IVP PRN (16:04)
[2016-11-23] MEDS ORDERED: *HR* Morphine 2 MG/ML SYRINGE IVP PRN (16:04)
--- NOTE | 2016-11-23 16:30 | Death Note ---
Discharge Sum: Summary - Date and Time Date of admission: 11/22/16 15:15 Date of : 11/23/16 Time of : 16:06 - Summary Details: Causes of : 1. Cardiac arrest 2. Cardiogenic shock 3. Acute on chronic respiratory failure with hypoxia and hypercapnia 4. Acute renal failure 5. Encephalopathy 6. Obesity hypoventilation syndrome 7. COPD 71-year-old morbidly obese white male who medical history significant for chronic respiratory failure due to advanced COPD and obesity hypoventilation syndrome. The patient presented with cardiac arrest, which was due to a primary cardiac versus pulmonary etiology, as he was certainly at risk for both. His first arrest was out of hospital and resulted in approximately 24 minutes of CPR. He arrested again while in the emergency department with ventricular fibrillation, which resolved with defibrillation and CPR. Evaluation in the hospital revealed severe hypokinesis of the left ventricle. He was unresponsive after the arrest with clinical signs of severe anoxic brain injury. He was been anuric acute renal failure. At the time of admission the family requested DNR CCA CODE STATUS. After further discussion the plan was to transition to DNR comfort care with compassionate extubation. We had stopped the hypothermia protocol and were waiting for additional family members to arrive. The patient went into pulseless ventricular fibrillation and prior to compassionate extubation. Time of : 11/23/2016 at 1606. - Additional Data Attending physician: Andrea Adames MD Discharge Sum: Diag - PCOD Probable Cause of : Cardiac arrest Discharge Sum: Prov - Provider Primary care physician: Laith Galindo MD Consults: 11/22/16 17:44 Consult to Pastoral Services [CONS] Routine Comment:
== END 2016-11-23 16:06 | disposition expired | DRG 296 ==
LOC: EMEROO 13:49 → ICNU 15:15
PROVIDERS: ADMIT Internal Medicine; ATTEND Internal Medicine